=== PATIENT | male | born 1975 | race Caucasian/White ===

== ENCOUNTER 2018-04-18 04:40 | Emergency (ER) | payer BC ==
[2018-04-18] MEDS ORDERED: Ondansetron 4 MG/2 ML SDV IVPUSH ONE (04:46)
[2018-04-18] MEDS ORDERED: Ketorolac 30 MG/ML SDV IVPUSH ONE (04:46)
[2018-04-18] MEDS ORDERED: Sodium Chloride 0.9% 10 ML Syringe FLUSH PRN (04:46)
[2018-04-18] MEDS ORDERED: Sodium Chloride 0.9% 2.5 ML Syringe FLUSH PRN (04:46)
[2018-04-18] MEDS ORDERED: Sodium Chloride 0.9% 1,000 ML IV ONE (04:46)
[2018-04-18] MEDS ORDERED: HYDROmorphone 2 MG/ML Syringe IVPUSH ONE (04:47)
--- NOTE | 2018-04-18 04:47 | EDM.PDOC ---
ED HPI GENERAL MEDICAL PROBLEM - General Chief Complaint: Flank Pain Stated Complaint: AMBULANCE Time Seen by Provider: 04/18/18 04:45 - History of Present Illness INITIAL COMMENTS - FREE TEXT/NARRATIVE: HISTORY AND PHYSICAL: History of present illness: The patient is a 43-year-old male who presents with sudden onset of left mid abdominal pain which is radiating to his flank and down to his groin that started suddenly while he was at work doing normal activities about 30 minutes prior to admission. The patient said the pain came on suddenly and was severe and he has never had anything like this before. Earlier this evening on his shift he was having a normal day without any systemic complaints and had a normal bowel movement soon after the onset of the pain without black or bloody stool and no diarrhea. The patient was nauseated and had some dry heaves but did not actually vomit. Patient did not take anything for medications and arrived here via EMS. Patient denies any or GI history and has no abdominal surgical history. He has had no urinary complaints such as hematuria dysuria or urgency. He currently says he does not feel nauseated but still has the pain. It is not as severe as when it started. He has no testicular pain or swelling. He denies any trauma to the area. Review of systems: As per history of present illness and below otherwise all systems reviewed and negative. Past medical history: As per history of present illness and as reviewed below otherwise noncontributory. Surgical history: As per history of present illness and as reviewed below otherwise noncontributory. Social history: No reported history of drug or alcohol abuse. Family history: As per history of present illness and as reviewed below otherwise noncontributory. Physical exam: General: Well-developed well-nourished man who is nontoxic and vital signs are noted by me. He looks comfortable in the bed and is not fidgety HEENT: Atraumatic, normocephalic, negative for conjunctival pallor or scleral icterus, mucous membranes moist, throat clear, neck supple, nontender, trachea midline. Lungs: Clear to auscultation, breath sounds equal bilaterally, chest nontender. Heart: S1S2, regular and rhythm no overt murmurs Abdomen: Soft, nondistended, minimal tenderness at mid abdominal area without rebound or guarding. There is no tympany on percussion and bowel sounds are hypoactive. I am not able to totally reproduce the pain when I palpate the left side as the patient says it is very deep pain. Negative for masses or hepatosplenomegaly. Negative for costovertebral tenderness. Pelvis: Stable nontender. Genitourinary: Deferred. Rectal: Deferred. Extremities: Atraumatic, negative for cords or calf pain. Neurovascular unremarkable. Neuro: Awake, alert, oriented. Cranial nerves II through XII unremarkable. Cerebellum unremarkable. Motor and sensory unremarkable throughout. Exam nonfocal. Diagnostics: CBC CMP amylase lipase UA H. pylori CT scan of the abdomen and pelvis Therapeutics: IV fluids Toradol Zofran Dilaudid I discussed all testing results with the patient and need for follow-up. I've talked about increasing potassium rich foods in his diet and will give him prescription for the treatment for the H. pylori infection. I've advised him I need for follow-up care and reasons to return to the ED Impression: Left abdominal/flank pain, H. pylori positive Definitive disposition and diagnosis as appropriate pending reevaluation and review of above. Left Flank Pain Score (Numeric/FACES): 8 - Related Data Allergies Allergy/AdvReac Type Severity Reaction Status Date / Time bee venom protein (honey bee) Allergy Hives Verified 04/18/18 04:42 Home Meds: Home Meds Allopurinol [Zyloprim] 100 mg PO DAILY 04/18/18 [History] ED ROS GENERAL - Review of Systems Review Of Systems: ROS reveals no pertinent complaints other than HPI. ED EXAM, GENERAL - Physical Exam Exam: See Below (See dictation) Course - Vital Signs Last Recorded V/S: Last Vital Signs Temp 36.6 C 04/18/18 05:56 Pulse 73 04/18/18 05:56 Resp 18 04/18/18 05:56 BP 129/80 04/18/18 05:56 Pulse Ox 97 04/18/18 05:56 - Orders/Labs/Meds Orders: Active Orders 24 hr Category Date Time Status Abdomen Pelvis wo Cont [CT] Stat Exams 04/18/18 04:46 Taken UA W/MICROSCOPIC [URIN] Stat Lab 04/18/18 05:00 Ordered Sodium Chloride 0.9% [Saline Flush] Med 04/18/18 04:46 Active 10 ml FLUSH ASDIRECTED PRN Sodium Chloride 0.9% [Saline Flush] Med 04/18/18 04:46 Active 2.5 ml FLUSH ASDIRECTED PRN Saline Lock Insert [OM.PC] Stat Oth 04/18/18 04:46 Ordered Medication Orders Sodium Chloride (Saline Flush) 10 ml FLUSH ASDIRECTED PRN PRN Reason: Keep Vein Open Sodium Chloride (Saline Flush) 2.5 ml FLUSH ASDIRECTED PRN PRN Reason: Keep Vein Open Labs: Laboratory Tests 04/18/18 04/18/18 04/18/18 Range/Units 04:42 04:42 04:42 WBC 7.93 (4.0-11.0) K/uL RBC 4.88 (4.50-5.90) M/uL Hgb 15.5 (13.0-17.0) g/dL Hct 42.8 (38.0-50.0) % MCV 87.7 (80.0-98.0) fL MCH 31.8 (27.0-32.0) pg MCHC 36.2 (31.0-37.0) g/dL RDW Std Deviation 40.5 (28.0-62.0) fl RDW Coeff of Melissa 13 (11.0-15.0) % Plt Count 175 (150-400) K/uL MPV 11.70 (7.40-12.00) fL Neut % (Auto) 45.8 L (48.0-80.0) % Lymph % (Auto) 41.7 H (16.0-40.0) % Mcnairy % (Auto) 7.6 (0.0-15.0) % Eos % (Auto) 4.4 (0.0-7.0) % Baso % (Auto) 0.5 (0.0-1.5) % Neut # (Auto) 3.6 (1.4-5.7) K/uL Lymph # (Auto) 3.3 H (0.6-2.4) K/uL Mcnairy # (Auto) 0.6 (0.0-0.8) K/uL Eos # (Auto) 0.4 (0.0-0.7) K/uL Baso # (Auto) 0.0 (0.0-0.1) K/uL Nucleated RBC % 0.0 /100WBC Nucleated RBCs # 0 K/uL Sodium 141 (136-148) mmol/L Potassium 3.0 L (3.5-5.1) mmol/L Chloride 105 (98-107) mmol/L Carbon Dioxide 26.0 (21.0-32.0) mmol/L BUN 11 (7.0-18.0) mg/dL Creatinine 1.1 (0.8-1.3) mg/dL Est Cr Clr Drug Dosing 94.13 mL/min Estimated GFR (MDRD) > 60.0 ml/min Glucose 120 H (74-106) mg/dL Calcium 9.0 (8.5-10.1) mg/dL Total Bilirubin 0.5 (0.2-1.0) mg/dL AST 36 (15-37) IU/L ALT 87 H (14-63) IU/L Alkaline Phosphatase 120 H (46-116) U/L Total Protein 7.2 (6.4-8.2) g/dL Albumin 3.9 (3.4-5.0) g/dL Globulin 3.3 (2.0-3.5) g/dL Albumin/Globulin Ratio 1.2 L (1.3-2.8) Amylase 44 (25-115) U/L Lipase 175 (73-393) U/L Urine Color Urine Appearance Urine pH (5.0-8.0) Ur Specific Coy (1.001-1.035) Urine Protein (NEGATIVE) mg/dL Urine Glucose (UA) (NEGATIVE) mg/dL Urine Ketones (NEGATIVE) mg/dL Urine Occult Blood (NEGATIVE) Urine Nitrite (NEGATIVE) Urine Bilirubin (NEGATIVE) Urine Urobilinogen (<2.0) EU/dL Ur Leukocyte Esterase (NEGATIVE) Urine RBC (0-2/HPF) Urine WBC (0-5/HPF) Ur Epithelial Cells (NONE-FEW) Urine Bacteria (NEGATIVE) H. pylori IgG Antibody POSITIVE H (NEG) 04/18/18 Range/Units 05:00 WBC (4.0-11.0) K/uL RBC (4.50-5.90) M/uL Hgb (13.0-17.0) g/dL Hct (38.0-50.0) % MCV (80.0-98.0) fL MCH (27.0-32.0) pg MCHC (31.0-37.0) g/dL RDW Std Deviation (28.0-62.0) fl RDW Coeff of Melissa (11.0-15.0) % Plt Count (150-400) K/uL MPV (7.40-12.00) fL Neut % (Auto) (48.0-80.0) % Lymph % (Auto) (16.0-40.0) % Mcnairy % (Auto) (0.0-15.0) % Eos % (Auto) (0.0-7.0) % Baso % (Auto) (0.0-1.5) % Neut # (Auto) (1.4-5.7) K/uL Lymph # (Auto) (0.6-2.4) K/uL Mcnairy # (Auto) (0.0-0.8) K/uL Eos # (Auto) (0.0-0.7) K/uL Baso # (Auto) (0.0-0.1) K/uL Nucleated RBC % /100WBC Nucleated RBCs # K/uL Sodium (136-148) mmol/L Potassium (3.5-5.1) mmol/L Chloride (98-107) mmol/L Carbon Dioxide (21.0-32.0) mmol/L BUN (7.0-18.0) mg/dL Creatinine (0.8-1.3) mg/dL Est Cr Clr Drug Dosing mL/min Estimated GFR (MDRD) ml/min Glucose (74-106) mg/dL Calcium (8.5-10.1) mg/dL Total Bilirubin (0.2-1.0) mg/dL AST (15-37) IU/L ALT (14-63) IU/L Alkaline Phosphatase (46-116) U/L Total Protein (6.4-8.2) g/dL Albumin (3.4-5.0) g/dL Globulin (2.0-3.5) g/dL Albumin/Globulin Ratio (1.3-2.8) Amylase (25-115) U/L Lipase (73-393) U/L Urine Color YELLOW Urine Appearance HAZY Urine pH 5.5 (5.0-8.0) Ur Specific Coy >= 1.030 (1.001-1.035) Urine Protein NEGATIVE (NEGATIVE) mg/dL Urine Glucose (UA) NEGATIVE (NEGATIVE) mg/dL Urine Ketones NEGATIVE (NEGATIVE) mg/dL Urine Occult Blood SMALL H (NEGATIVE) Urine Nitrite NEGATIVE (NEGATIVE) Urine Bilirubin NEGATIVE (NEGATIVE) Urine Urobilinogen 0.2 (<2.0) EU/dL Ur Leukocyte Esterase NEGATIVE (NEGATIVE) Urine RBC 0-2 (0-2/HPF) Urine WBC 0-1 (0-5/HPF) Ur Epithelial Cells RARE (NONE-FEW) Urine Bacteria RARE (NEGATIVE) H. pylori IgG Antibody (NEG) Meds: Medications Generic Name Dose Route Start Last Admin Trade Name Freq PRN Reason Stop Dose Admin Sodium Chloride 10 ml 04/18/18 04:46 Saline Flush FLUSH ASDIRECTED PRN Keep Vein Open Sodium Chloride 2.5 ml 04/18/18 04:46 Saline Flush FLUSH ASDIRECTED PRN Keep Vein Open Discontinued Medications Generic Name Dose Route Start Last Admin Trade Name Freq PRN Reason Stop Dose Admin Hydromorphone HCl 0.5 mg 04/18/18 04:47 Dilaudid IVPUSH 04/18/18 04:48 ONETIME ONE Hydromorphone HCl 0.5 mg 04/18/18 04:51 04/18/18 05:06 Dilaudid IVPUSH 04/18/18 04:52 0.5 mg ONETIME ONE Administration Hydromorphone HCl Confirm 04/18/18 04:51 04/18/18 04:58 Dilaudid Administered 04/18/18 04:52 Not Given Dose 1 mg .ROUTE .STK-MED ONE Sodium Chloride 1,000 mls @ 999 mls/hr 04/18/18 04:46 04/18/18 05:05 Normal Saline IV 04/18/18 05:46 999 mls/hr STAT ONE Administration Ketorolac Tromethamine 30 mg 04/18/18 04:46 04/18/18 05:05 Toradol IVPUSH 04/18/18 04:47 30 mg ONETIME ONE Administration Ondansetron HCl 4 mg 04/18/18 04:46 04/18/18 05:05 Zofran IVPUSH 04/18/18 04:47 4 mg ONETIME ONE Administration Departure - Departure Time of Disposition: 06:02 Disposition: Home, Self-Care 01 Condition: Good Clinical Impression: Left sided abdominal pain, H. pylori infection - Discharge Information Forms: ED Department Discharge Additional Instructions: The following information is given to patients seen in the emergency department who are being discharged to home. This information is to outline your options for follow-up care. We provide all patients seen in our emergency department with a follow-up referral. The need for follow-up, as well as the timing and circumstances, are variable depending upon the specifics of your emergency department visit. If you don't have a primary care physician on staff, we will provide you with a referral. We always advise you to contact your personal physician following an emergency department visit to inform them of the circumstance of the visit and for follow-up with them and/or the need for any referrals to a consulting specialist. The emergency department will also refer you to a specialist when appropriate. This referral assures that you have the opportunity for followup care with a specialist. All of these measure are taken in an effort to provide you with optimal care, which includes your followup. Under all circumstances we always encourage you to contact your private physician who remains a resource for coordinating your care. When calling for followup care, please make the office aware that this follow-up is from your recent emergency room visit. If for any reason you are refused follow-up, please contact the [facility] emergency department at and ask to speak to the emergency department charge nurse. [facility]- Internal Medicine and Family [address] [address] Please try to increase fiber in your diet and eat potassium-rich foods such as bananas and whole grains. Please fill the prescription you have been given for the treatment for your H. pylori infection and reduce caffeine intake and alcohol intake and other irritating foods to the stomach please try to eat more healthy meals and reduce fast foods and take out food. Call the clinic and schedule a follow-up appointment resources given to above and return to ER as needed and as discussed. - My Orders Last 24 Hours: My Active Orders 04/18/18 04:46 Abdomen Pelvis wo Cont [CT] Stat Sodium Chloride 0.9% [Saline Flush] 10 ml FLUSH ASDIRECTED PRN Sodium Chloride 0.9% [Saline Flush] 2.5 ml FLUSH ASDIRECTED PRN Saline Lock Insert [OM.PC] Stat 04/18/18 05:00 UA W/MICROSCOPIC [URIN] Stat - Assessment/Plan Last 24 Hours: My Active Orders 04/18/18 04:46 Abdomen Pelvis wo Cont [CT] Stat Sodium Chloride 0.9% [Saline Flush] 10 ml FLUSH ASDIRECTED PRN Sodium Chloride 0.9% [Saline Flush] 2.5 ml FLUSH ASDIRECTED PRN Saline Lock Insert [OM.PC] Stat 04/18/18 05:00 UA W/MICROSCOPIC [URIN] Stat
[2018-04-18] MEDS ORDERED: HYDROmorphone 1 MG/ML Syringe ONE (04:51)
[2018-04-18] MEDS ORDERED: HYDROmorphone 1 MG/ML Syringe IVPUSH ONE (04:51)
[2018-04-18 05:13] LABS: CHLORIDE,CL 105 mmol/L (98-107); SODIUM,NA 141 mmol/L (136-148)
--- NOTE | 2018-04-18 18:47 | CT ---
EXAM DATE: 04/18/18 PATIENT'S AGE: 43 Patient: MYAH MAI Facility: [place], [place] Site . Site : [id number] Study: CT Abdomen/Pelvis [id number]/16/2018 5:33:26 AM Ordering Physician: Jeferson Castellanos Final Report: INDICATION: pain CT ABDOMEN AND PELVIS WITHOUT CONTRAST TECHNIQUE: Multidetector CT imaging was performed through the abdomen and pelvis without intravenous or oral contrast (renal stone CT protocol). Coronal and sagittal reconstructions were generated. COMPARISON: None. FINDINGS: No stones are visualized within the kidneys, ureters, or urinary bladder. There is no ureteral dilation, hydronephrosis, or perinephric/ periureteral stranding to suggest ureteral obstruction. Included portions of the lower chest show the lung bases to be clear aside from minimal atelectasis. No abnormalities are demonstrated in the unenhanced liver, spleen, gallbladder, pancreas, stomach, and adrenals. Bowel loops are of normal caliber and demonstrate no wall thickening. The appendix is normal. No free fluid or free air is identified. The abdominal aorta appears normal in caliber. No abnormally enlarged lymph nodes are seen. The urinary bladder, prostate, and seminal vesicles are within normal limits. Visualized bones show no acute findings. IMPRESSION: No acute abnormality identified. No cause for the patient`s symptoms is apparent. DESTINY SANCHEZ MD [employer] Dictated by: Danyel Sanchez MD @ 04/18/2018 05:58:52 (Electronic Signature) Report Signed by Proxy. [facility]
== END 2018-04-18 06:30 | disposition home or self-care (01) ==
LOC: MW.ED 04:40
DX: R10.9 Unspecified abdominal pain (principal); B96.81 Helicobacter pylori [H. pylori] as the cause of diseases classified elsewhere
CPT/HCPCS: 74176; 80053; 81001; 82150; 83690; 85025; 86677; J1170; J1885; J2405; J7040